=== PATIENT | male | born 1950 | race Asian ===

== ENCOUNTER 2022-01-11 20:27 | Emergency (ER) | payer OTHER ==
[~2022-01-11] VITALS: Ht 190.5 cm; Wt 104.8 kg
[2022-01-11 20:55] LABS: PLATELET COUNT 167 K/uL (142-355)
[2022-01-11 21:03] LABS: POTASSIUM 3.7 mmol/L (3.6-5.2)
[2022-01-11 21:40] VITALS: BP 177/109; TEMP 98.4
[2022-01-11] MEDS ORDERED: AMLODIPINE BESYLATE PO (23:40)
[2022-01-11] MEDS ORDERED: CALCIUM PO (23:41)
[2022-01-11] MEDS ORDERED: CLARITIN10 M1 PO (23:42)
[2022-01-11] MEDS ORDERED: CARV3.12 PO (23:42)
[2022-01-12] MEDS ORDERED: B-121000 MC4 PO (00:21)
[2022-01-12] MEDS ORDERED: [UNRECOGNIZED DRUG - OTHER] PO (00:22)
[2022-01-12] MEDS ORDERED: LATA0.00 OPTH (00:24)
[2022-01-12] MEDS ORDERED: ZESTRIL40 MG PO (00:25)
[2022-01-12] MEDS ORDERED: METF500T PO (00:26)
[2022-01-12] MEDS ORDERED: PROTONIX20 MG PO (00:27)
[2022-01-12] MEDS ORDERED: RISP1TAB PO (00:28)
[2022-01-12] MEDS ORDERED: PRAZOSIN HYDROCH5 MG PO (00:28)
[2022-01-12] MEDS ORDERED: ROSUVASTATIN CAL5 MG PO (00:29)
[2022-01-12] MEDS ORDERED: SILODOSIN4 MG PO (00:30)
[2022-01-12] MEDS ORDERED: VITAMIN D1000 UNIT PO (00:31)
[2022-01-12] MEDS ORDERED: XARELTO10 MG PO (00:32)
== END 2022-01-11 21:40 | disposition still patient (30) ==
LOC: ED 20:27
PROVIDERS: Emergency Medicine Emergency Medical Services
DX: F03.91 Unspecified dementia, unspecified severity, with behavioral disturbance (principal); Z11.52 Encounter for screening for COVID-19; Z04.6 Encounter for general psychiatric examination, requested by authority
CPT/HCPCS: 36415; 80053; 81000; 85027; 87635; 93005; 99283; U0003